=== PATIENT | male | born 1950 | race Caucasian/White ===

== ENCOUNTER 2021-10-17 11:51 | Day surgery (SDC) | payer MEDICARE, MEDICAID ==
[~2021-10-17] VITALS: Ht 170.2 cm; Wt 56.9 kg
[2021-10-17] MEDS ORDERED: normal saline 1000ml 1,000 ML IV PRN (12:20)
[2021-10-17] MEDS ORDERED: HYDR-3972 PO (12:29)
[2021-10-17] MEDS ORDERED: LACT1CAP73 PO (12:29)
[2021-10-17] MEDS ORDERED: LOSA25TA96 PO (12:29)
[2021-10-17 12:30] VITALS: BP 102/68
[2021-10-17 13:05] LABS: ALBUMIN 3.6 G/DL (3.4-5.0); ANION GAP 15 (8-16); BLOOD UREA NITROGEN 42 MG/DL (7-18); CALCIUM 9.3 MG/DL (8.5-10.1); CHLORIDE 105 MMOL/L (99-107); CREATININE 1.68 MG/DL (0.60-1.10); GLUCOSE 73 MG/DL (70-104); POTASSIUM 5.5 MMOL/L (3.5-5.1); SODIUM 140 MMOL/L (135-145); TOTAL CARBON DIOXIDE 20.3 MMOL/L (24-32); eGFR 41 ML/MIN
[2021-10-17] MEDS ORDERED: LIDOcaine 1%/PF 5ML 10 MG/ML VIAL ONE (13:25)
[2021-10-17] MEDS ORDERED: midazolam 1 mg/ML 2ml injection ONE (13:25)
[2021-10-17] MEDS ORDERED: heparin sodium, porcine/PF 100unit/ml 5ML syringe ONE (13:25)
[2021-10-17] MEDS ORDERED: fentaNYL/PF 50MCG/1 ML 2ML syringe ONE (13:26)
[2021-10-17 13:31] LABS: BASOPHILS # (AUTO) 0.1 X10'3 (0-0.2); EOSINOPHILS % (AUTO) 0.8 % (0-6); HEMATOCRIT 43.4 % (42.0-52.0); HEMOGLOBIN 14.7 g/dl (14.0-17.9); LYMPHOCYTES # (AUTO) 1.1 X10'3 (1.1-4.8); MEAN CORPUSCULAR HEMOGLOBIN 31.5 PG (27.0-31.0); MEAN CORPUSCULAR HGB CONC 33.8 g/dL (33.0-36.5); MEAN PLATELET VOLUME 8.6 FL (7.4-10.4); MONOCYTES # (AUTO) 0.5 X10'3 (0-0.9); MONOCYTES % (AUTO) 8.5 % (2-12); NEUTROPHILS # (AUTO) 4.3 X10'3 (1.8-7.7); NEUTROPHILS % (AUTO) 70.7 % (42-75); PLATELET COUNT 181 X10'3 (140-440); RED BLOOD COUNT 4.67 X10'6 (4.70-6.10); RED CELL DISTRIBUTION WIDTH 16.9 % (11.5-14.5)
[2021-10-17] MEDS ORDERED: normal saline 1000ml 1,000 ML IV SCH (13:55)
[2021-10-17 14:50] VITALS: BP 115/67
[2021-10-17 15:05] VITALS: BP 102/67
[2021-10-17 15:20] VITALS: BP 115/74
[2021-10-17 15:35] VITALS: BP 119/64
== END 2021-10-17 15:50 | disposition home or self-care (01) ==
LOC: SSTAY O 11:51
PROVIDERS: ATTEND Radiology Diagnostic Radiology
DX: C01 Malignant neoplasm of base of tongue (principal); Z79.899 Other long term (current) drug therapy; Z79.01 Long term (current) use of anticoagulants; Z98.890 Other specified postprocedural states
CPT/HCPCS: 36415; 36561; 76937; 77001; 80048; 85025; 85610; 99152; 99153; C1769; C1788; C1894; J1642; J2250; J3010; J3490; J7030; A4620